=== PATIENT | male | born 1975 | race Caucasian/White ===

== ENCOUNTER 2024-07-07 16:36 | Emergency (ER) | payer BC, OTHER, SELFPAY ==
--- OUTSIDE RECORDS SUMMARY | 2024-07-07 16:39 | XMS REPORT | Continuity of Care Document ---
Author Name Unknown Address [address] [facility] [address] [place] [address] Organization [facility] [place] Address [address] [facility] [address] [place] [address] Care Team Providers Care Radiology Manager Name Role Phone PCP, PATIENT DOES NOT HAVE A Primary Care Physic cherie Unavailable Kailash Sal DO Attending Clinician KAILASH SAL Attending Clinician Unavailable KAILASH SAL Admitting Clinician Unavailable Payers Payer Name Policy Type Policy Number Effective Date Expirati on Date Source Allergies, Adverse Reactions, Alerts Allergy Name Allergy Type Status Severity Reaction(s) Onset Date Inactive Date Treating Clinician Comments Source Penicill in Propensi ty to adverse reaction s Active Anaphylaxis 05-09 00:00: 00 [facility] PENICILL IN DRUG INGREDI Active Anaphylaxis 05-09 00:00: 00 [facility] NO KNOWN ALLERGIE S Drug Class Active [facility] Social History Social Habit Start Date Stop Date Quantity Comments Source Sexual orientation U [facility] Sex Assigned At 1975 00:00:00 1975 00:00:00 [facility] Smoking Status Start Date Stop Date Source Tobacco smoking consumption unknown [facility] Medications Ordered Medication Name Filled Medication Name Start Date Stop Date Current Medication? Ordering Clinician Indication Dosage Frequency Signature (SIG) Comments Components Source methylpredn isolone sod succ (SOLU-MEDRO L) injection 125 mg 05-09 10:00: 00 Yes 125mg 125 mg, Intravenou s, Q6H ABX, First dose on Tue05/09/23 at 0400, Until Discontinu ed, Routine [facility] ipratropium -albuteroL (DUONEB) 0.5 mg-3 mg(2.5 mg base)/3 mL nebulizer solution 3 mL 05-09 10:00: 00 Yes 3mL 3 mL, Inhalation , QID, First dose on Tue05/09/23 at 0400, Until Discontinu ed, Routine [facility] Vital Signs Vital Name Observation Time Observation Value Comments S ource Systolic blood pressure 2023-05-09 11:00:00 113 mm[Hg] [facility] Diastolic blood pressure 2023-05-09 11:00:00 68 mm[Hg] [facility] Heart rate 2023-05-09 11:00:00 76 /min [facility] Respiratory rate 2023-05-09 11:00:00 24 /min [facility] Oxygen saturation in Arterial blood by Pulse oximetry 2023-05-09 11:00:00 95 /min [facility] Body temperature 2023-05-09 09:39:00 36.89 Daily [facility] Body height 2023-05-09 09:39:00 185.4 cm [facility] Body weight 2023-05-09 09:39:00 127.007 kg [facility] BMI 2023-05-09 09:39:00 36.94 kg/m2 [facility] Procedures Procedure Date / Time Performed Performing Clinicia n Source TROPONIN I 2023-05-09 09:50:00 Kailash Sal [facility] COMP. METABOLIC PANEL (87715) 2023-05-09 09:50:00 Singer Kailash [facility] CBC WITH DIFF 2023-05-09 09:50:00 Kailash Sal [facility] N-TERMINAL PRO-BNP 2023-05-09 09:50:00 Singer Kailash [facility] NOTICE OF PRIVACY PRACTICES 2023-05-09 09:33:05 Doctor Unassigned, [place] [facility] CONSENT/REFUSAL FOR DIAGNOSIS AND TREATMENT 2023-05-09 09:32:33 Doctor Unassigned, [place] [facility] Encounters Start Date/Time End Date/Time Encounter Type Admission Type Attending Clinicians Care Facility Care Department Encounter ID Source 2023-05-09 03:40:00 2023-05-09 05:35:00 Emergency Kailash Sal [facility] [id number] [facility] 2023-05-09 03:40:00 2023-05-09 05:35:00 Emergency X KAILASH SAL [facility] ERT [id number] [facility] Results Test Description Test Time Test Comments Results Result Co mments Source [id number] 10:44:39* Test Item Value Reference Range Interpretation Comme nts NT-proBNP (test code = 56216-8) 191 pg/mL <=125 LIZZ (test code = LIZZ) Result Indeterminate-Consid er causes of NT-proBNP elevation other than Heart failure such as acute coronary syndrome, pulmonary embolism, pulmonary hypertension, sepsis, stroke, and renal dysfunction. Lab Interpretation (test code = 94413-5) [facility] (58701)2023-05-09 10:35:20* Test Item Value Reference Range Interpretation Comme nts NA (test code = 3340504700) 139 mmol/L 135-145 K (test code = 7549983459) 3.8 mmol/L 3.5-5.0 CL (test code = 2626637986) 108 mmol/L 98-108 CO2 TOTAL (test code = 9013282103) 26 mmol/L 23-31 AGAP (test code = 8290060892) 5 2-16 BUN (test code = 6210191680) 13 mg/dL 7-23 GLUCOSE (test code = 6349578300) 106 mg/dL 70-110 CREATININE (test code = 2160-0) 0.95 mg/dL 0.60-1.25 TOTAL BILI (test code = 5336508904) 0.6 mg/dL 0.1-1.1 CALCIUM (test code = 4404858934) 9.0 mg/dL 8.6-10.6 T PROTEIN (test code = 0136317465) 7.7 g/dL 6.3-8.2 ALBUMIN (test code = 3916023327) 4.1 g/dL 3.5-5.0 ALK PHOS (test code = 3082810057) 133 U/L 34-122 H ALTv (test code = 1742-6) 23 U/L 5-50 AST(SGOT) (test code = 5105808783) 31 U/L 13-40 eGFR (test code = 64854-7) 100.0 mL/min/1.73m2 CKD-EPI eGFR (2020). Assuming creatinine has been stable day-to-day for at least three months, the eGFR indicates Category G1 (>= 90 mL/min/1.73 m2) Lab Interpretation (test code = 47644-6) Abnormal [facility] with [id number] 10:26:39* Test Item Value Reference Range Interpretation Comme nts WBC (test code = 6690-2) 10.42 4.20-10.70 RBC (test code = 789-8) 4.83 4.26-5.52 HGB (test code = 718-7) 14.2 g/dL 12.2-16.4 HCT (test code = 4544-3) 42.0 % 38.4-49.3 MCV (test code = 787-2) 87.0 fL 81.7-95.6 MCH (test code = 785-6) 29.4 pg 26.1-32.7 MCHC (test code = 786-4) 33.8 g/dL 31.2-35.0 RDW-SD (test code = 95179-1) 38.7 fL 38.5-51.6 RDW-CV (test code = 788-0) 12.3 % 12.1-15.4 PLT (test code = 777-3) 293 150-328 MPV (test code = 07420-3) 9.9 fL 9.8-13.0 NRBC/100 WBC (test code = 7861562890) 0.0 0.0-10.0 NRBC x10^3 (test code = 4811045751) See_Comment [Automated messa ge] The system which generated this result transmitted reference range: 10*3/?L. The reference range was not used to interpret this result as normal/abnormal. GRAN MAT (NEUT) % (test code = 770-8) 67.0 % IMM GRAN % (test code = 6527250039) 0.30 % LYMPH % (test code = 736-9) 15.7 % MONO % (test code = 5905-5) 5.7 % EOS % (test code = 713-8) 10.7 % BASO % (test code = 706-2) 0.6 % GRAN MAT x10^3(ANC) (test code = 1528192650) 6.98 10*3/uL 1.99-6.95 H IMM GRAN x10^3 (test code = 4719245401) 0.03 10*3/uL 0.00-0.06 LYMPH x10^3 (test code = 731-0) 1.64 10*3/uL 1.09-3.23 MONO x10^3 (test code = 742-7) 0.59 10*3/uL 0.36-1.02 EOS x10^3 (test code = 711-2) 1.12 10*3/uL 0.06-0.53 H BASO x10^3 (test code = 704-7) 0.06 10*3/uL 0.01-0.09 Lab Interpretation (test code = 39372-6) Abnormal [facility] Notes Date/Time Note Provider Source 2023-05-09 05:34:45 Pt given printed and verbal discharge instructions regarding uncertain cause chest pain, encouraged hydration. Pt verbalized understanding of instructions, pt awake alert oriented, resp reg unlabored, skin w/d, color appropriate for race, moves all ext well,pt encouraged to follow up with pcp & cardiology. Advised to seek medical attention for new/prolonged/worsening of symptoms. No adverse reaction to meds given in ER noted upon discharge. PIV d'cd, dressing to site, catheter in tact. Awake, alert oriented, resp reg unlabored, skin w/d, pt leaving amb with steady gait, in no apparent distress. [facility] 2023-05-09 03:35:45 Pt arrives ambulatory to ED reporting substernal chest pain, SOB, and dizziness x aprox 2 hrs. States he has not been sick recently but throat does hurt now after the SOB earlier. [facility] 2023-05-09 03:31:00 [facility] Emergency Department Note Patient Name: Therese Douglas Date of : 1975 48 year old male Treatment Room: MO5/MO5 Primary Care Physician: No primary care provider on file. Patient Escorted by: Family [5] Mode of Arrival: Personal means [1] EMS Treatment Prior to ED Arrival: Travel and Exposure Screening: Symptoms Does patient have any of these symptoms?: (not recorded) Exposure Screening Has patient had contact with someone with a communicable disease in the last month?: (not recorded) Diseases exposed to:: (not recorded) Is Patient ?: (not recorded) Exposure Date: (not recorded) Chief Complaint: Chief Complaint Patient presents with Chest Pain History of Present Illness: Patient 48-year-old male presenting for evaluation of chest pain and shortness of breath. Patient states that he was sleeping and was awakened with symptoms. He has no history of coronary artery disease. No known history of hypertension, hyperlipidemia, or diabetes. Pain is substernal nonradiating. He is a smoker and associated with wheezing. Past Medical History/Immunizations: No past medical history on file. Tetanus received in last 5 years: No Allergies: Allergies Allergen Reactions Penicillin Anaphylaxis Past Social History: Substance & Sexual Activity No substance use or sexual activity history on file. Past Surgical History: No past surgical history on file. Review of Systems: Review of Systems Constitutional: Negative for activity change, appetite change, chills, diaphoresis and fever. HENT: Negative for sore throat and voice change. Eyes: Negative for pain and visual disturbance. Respiratory: Positive for shortness of breath and wheezing. Negative for cough and chest tightness. Cardiovascular: Positive for chest pain. Negative for leg swelling. Gastrointestinal: Negative for abdominal pain, blood in stool, constipation and diarrhea. Genitourinary: Negative for dysuria, urgency and difficulty urinating. Musculoskeletal: Negative for back pain. Skin: Negative for color change, rash and wound. Neurological: Negative for dizziness and headaches. Psychiatric/Behavioral: The patient is nervous/anxious. Hematological: Does not bruise/bleed easily. Physical Exam: ED Triage Vitals [05/09/23 0339] Weight 127 kg (280 lb) Actual or estimated Estimated by patient/family report Height 1.854 m (6' 1") BP (!) 140/81 Pulse 84 Resp 20 Temp 36.9 ?C (98.4 ?F) Temp source Oral SpO2 97 % Measured on Room air Physical Exam Vitals and nursing note reviewed. Constitutional: Appearance: He is well-developed. HENT: Head: Normocephalic and atraumatic. Eyes: General: No scleral icterus. Conjunctiva/sclera: Conjunctivae normal. Pupils: Pupils are equal, round, and reactive to light. Neck: Vascular: No JVD. Cardiovascular: Rate and Rhythm: Normal rate and regular rhythm. Heart sounds: Normal heart sounds. Pulmonary: Effort: Pulmonary effort is normal. Breath sounds: Normal breath sounds. No stridor. Abdominal: General: Bowel sounds are normal. Palpations: Abdomen is soft. Musculoskeletal: General: Normal range of motion. Cervical back: Normal range of motion and neck supple. Skin: General: Skin is warm and dry. Neurological: Mental Status: He is alert and oriented to person, place, and time. Psychiatric: Behavior: Behavior normal. Thought Content: Thought content normal. Radiology: No orders to display Lab Results: Lab Results CBC WITH DIFF - Abnormal Result Value Ref Range WBC 10.42 4.20 - 10.70 10*3/?L RBC 4.83 4.26 - 5.52 10*6/?L HGB 14.2 12.2 - 16.4 g/dL HCT 42.0 38.4 - 49.3 % MCV 87.0 81.7 - 95.6 fL MCH 29.4 26.1 - 32.7 pg MCHC 33.8 31.2 - 35.0 g/dL RDW-SD 38.7 38.5 - 51.6 fL RDW-CV 12.3 12.1 - 15.4 % PLT 293 150 - 328 10*3/?L MPV 9.9 9.8 - 13.0 fL NRBC/100 WBC 0.0 0.0 - 10.0 /100 WBCs NRBC x10 3 <0.01 10*3/?L GRAN MAT (NEUT) % 67.0 % IMM GRAN % 0.30 % LYMPH % 15.7 % MONO % 5.7 % EOS % 10.7 % BASO % 0.6 % GRAN MAT x10 3 (ANC) 6.98 (*) 1.99 - 6.95 10*3/uL IMM GRAN x10 3 0.03 0.00 - 0.06 10*3/uL LYMPH x10 3 1.64 1.09 - 3.23 10*3/uL MONO x10 3 0.59 0.36 - 1.02 10*3/uL EOS x10 3 1.12 (*) 0.06 - 0.53 10*3/uL BASO x10 3 0.06 0.01 - 0.09 10*3/uL COMP. METABOLIC PANEL (71341) - Abnormal NA 139 135 - 145 mmol/L K 3.8 3.5 - 5.0 mmol/L CL 108 98 - 108 mmol/L CO2 TOTAL 26 23 - 31 mmol/L AGAP 5 2 - 16 BUN 13 7 - 23 mg/dL GLUCOSE 106 70 - 110 mg/dL CREATININE 0.95 0.60 - 1.25 mg/dL TOTAL BILI 0.6 0.1 - 1.1 mg/dL CALCIUM 9.0 8.6 - 10.6 mg/dL T PROTEIN 7.7 6.3 - 8.2 g/dL ALBUMIN 4.1 3.5 - 5.0 g/dL ALK PHOS 133 (*) 34 - 122 U/L ALTv 23 5 - 50 U/L AST(SGOT) 31 13 - 40 U/L eGFR 100.0 mL/min/1.73m2 N-TERMINAL PRO-BNP - Abnormal NT-proBNP 191 <=125 pg/mL TROPONIN I - Normal TROPONIN I 0.002 <=0.034 ng/mL EKG: If EKG completed, see Procedure Note. Orders and Treatments: Orders Placed This Encounter Procedures XR CHEST 1 VW Cbc with Diff Comp. Metabolic Panel (69544) N-Terminal Pro-Bnp Troponin I Orders Placed This Encounter Medications ipratropium-albuteroL (DUONEB) 0.5 mg-3 mg(2.5 mg base)/3 mL nebulizer solution 3 mL methylprednisolone sod succ (SOLU-MEDROL) injection 125 mg First Provider Eval: ED Events None ED COURSE Diagnosis/Impression as of 05/09/23 0455 Chest pain, unspecified type Shortness of breath Wheezing Procedures: Procedures MDM: Medical Decision Making Therese Douglas is a 48 year old male with low risk chest pain. HEART score 2. Stable for discharge with OP cardiology follow up. EKG normal. Trop normal. Wheezing improved after treatment. Problems Addressed: Chest pain, unspecified type: acute illness or injury Shortness of breath: acute illness or injury Wheezing: acute illness or injury Amount and/or Complexity of Data Reviewed Labs: ordered. Radiology: ordered. Risk Prescription drug management. Flowsheet Documentation: Scoring Tools: No data recorded Disposition/Condition: ED Disposition ED Disposition Disch - Home Condition Stable Comment -- Discharge Medications: Patient's Medications No medications on file Follow-up: Contact information for follow-up [facility] [address], [address] [facility] [address] Instructions: For follow up of the presenting symptoms. [facility]-Emergency Department Specialty: Emergency Medicine [address] [facility] [address] Instructions: If symptoms worsen as documented in the discharge Electronically signed by: Kailash Sal DO 05/09/235 [facility]
[2024-07-07] MEDS ORDERED: LIDOCAINE 1% 20 ML MDV ONE (17:31)
[2024-07-07] MEDS ORDERED: TDAP (DIPHTH,PERTUSS(ACELL),TET VAC) 0.5 ML VIAL IMVAC ONE (17:32)
--- NOTE | 2024-07-07 19:36 | RAD REPORT ---
EXAM: Hand Right 3 View HISTORY: Pain;Smash injury COMPARISON: None FINDINGS: Bones: No acute fracture identified. Alignment:No significant malalignment. Degenerative changes:None significant. Other: n/a IMPRESSION: No evidence of acute osseous abnormality involving the imaged hand.
--- NOTE | 2024-07-07 19:56 | EDPHYS ---
Physician Documentation [facility] Name: Jg Goldman Age: 49 yrs Sex: Male : 1975 Arrival Date: 07/07/2024 Time: 16:36 Bed 12 Private MD: ED Physician Erik Shetty HPI: 07/07 22:03 This 49 yrs old Male presents to ER via Ambulatory with complaints of Fall dr5 Injury, Facial Injury, Hand Injury. 22:03 Patient is a 49-year-old male with history of depression and anxiety coming in with a dr5 fall from 2 foot ladder without loss of consciousness. Patient reports he cut his right third digit as well as hit the right side of his face. Patient is on blood thinners and does not take medications daily.. Historical: - Allergies: 16:51 PENICILLINS; iw - PMHx: 16:51 Depressive disorder; Anxiety; iw - PSHx: 16:51 None; iw - Immunization history:: Last tetanus immunization: unknown. - Infectious Disease History:: Denies. - Social history:: Smoking status: Reported history of juuling and/or vaping. ROS: 22:03 Constitutional: as per hpi dr5 Exam: 22:03 Constitutional: This is a well developed, well nourished patient who is awake, alert, dr5 and in no acute distress. Head/Face: Normocephalic, atraumatic. Eyes: Pupils equal round and reactive to light, extra-ocular motions intact. Lids and lashes normal. Conjunctiva and sclera are non-icteric and not injected. Cornea within normal limits. Periorbital areas with no swelling, redness, or edema. Neck: Trachea midline, no thyromegaly or masses palpated, and no cervical lymphadenopathy. Supple, full range of motion without nuchal rigidity, or vertebral point tenderness. No Meningismus. Chest/axilla: Normal chest wall appearance and motion. Nontender with no deformity. No lesions are appreciated. Cardiovascular: Regular rate and rhythm with a normal S1 and S2. Normal PMI, no JVD. No pulse deficits. Respiratory: Lungs have equal breath sounds bilaterally, clear to auscultation. No rales, rhonchi or wheezes noted. No increased work of breathing, no retractions or nasal flaring. Back: No spinal tenderness. No costovertebral tenderness. Full range of motion. MS/ Extremity: Pulses equal, no cyanosis. Neurovascular intact. Full, normal range of motion. Neuro: Awake and alert, GCS 15, oriented to person, place, time, and situation. Cranial nerves II-XII grossly intact. Motor strength 5/5 in all extremities. Sensory grossly intact. Cerebellar exam normal. Normal gait. 22:03 Skin: injury, laceration(s), the wound is approximately .4 cm(s), with a depth of .2 cm(s), of the upper right corner of mouth lateral not involving lip, the second wound is approximately 4 cm(s), with a depth of 1.5 cm(s), of the palmar aspect of proximal phalanx of right middle finger, Vital Signs: 16:50 BP 136 / 68; Pulse 69; Resp 16; Temp 98.1; Pulse Ox 98% on R/A; Weight 106.59 kg; iw Height 6 ft. 1 in. ; Pain 9/10; 19:45 BP 124 / 69; Pulse 71; Resp 18; Pulse Ox 99% ; Pain 0/10; rg5 16:50 Body Mass Index 31.00 (106.59 kg, 185.42 cm) iw 16:50 Pain Scale: Adult iw 19:45 Pain Scale: Adult rg5 Laceration: 22:03 Wound Repair of 4cm ( 1.6in ) subcutaneous laceration to palmar aspect of proximal dr5 phalanx of right middle finger. Irregularly shaped.. Hemostasis noted.. Distal neuro/vascular/tendon intact. Anesthesia: Regional Block with 2 mls of 1% lidocaine. Wound prep: Moderate cleansing by me, Copious irrigation. Skin closed with 11 4-0 Prolene using simple sutures and sterile technique. Dressed with non-adherent dressing. Patient tolerated well. 22:03 Wound Repair of 1cm ( 0.4in ) subcutaneous laceration to upper right corner of mouth dr5 not involving lip. Irregularly shaped.. Hemostasis noted.. Distal neuro/vascular/tendon intact. Anesthesia: Local anesthetic administered with 0.5 mls of 1% lidocaine. Wound prep: Moderate cleansing by me. Skin closed with 3 6-0 Prolene using simple sutures and sterile technique. Dressed with non-adherent dressing. Patient tolerated well. MDM: 17:03 Medical Screening Exam initiated dr5 22:03 Differential diagnosis: abrasion, contusion, fracture, laceration. Data reviewed: vital dr5 signs, nurses notes, radiologic studies, plain films. I considered the following discharge prescriptions or medication management in the emergency department Medications were administered in the Emergency Department. See MAR. Historians other than the Patient: Spouse/Significant Other: and Mother. Care significantly affected by the following chronic conditions: Depression, Anxiety. Care significantly affected by the following Social Determinants of Health: Poor access to healthcare and/or lack of insurance, Poor access to transportation, Problems related to employment. Counseling: I had a detailed discussion with the patient and/or guardian regarding the historical points, exam findings, and any diagnostic results supporting the discharge/admit diagnosis, the presence of at least one elevated blood pressure reading (>120/80) during this emergency department visit, radiology results, the need for outpatient follow up, for definitive care, a family practitioner, to return to the emergency department if symptoms worsen or persist or if there are any questions or concerns that arise at home. ED course: Laceration was repaired with approximation. No fracture noted on x-ray. Recommended having facial laceration removed in 5 days and finger removed in 10-14. Recommended keeping wound clean and dry and wash with soap and water. All questions answered. Will have patient follow-up either here for removal of sutures or follow-up primary care doctor.. 07/07 18:29 Order name: Hand Right 3 View XRAY; Complete Time: 19:54 [facility] 07/07 17:25 Order name: Dressing - Wound; Complete Time: 20:08 [facility] 07/07 17:25 Order name: Prolene, Sutures; Complete Time: 17:59 [facility] 07/07 17:25 Order name: Setup Suture Tray; Complete Time: 17:59 dr5 Administered Medications: 17:35 Drug: Boostrix Tdap IM 0.5 ml IM once; as a single dose Route: IM; Site: right deltoid; aa5 19:52 Follow up: Response: No adverse reaction rg5 19:51 Drug: Lidocaine Infiltration (1 %) 20 ml 20 ml Infiltration once; to bedside {Note: rg5 given by provider.} Volume: 20 ml; Route: Infiltration; Disposition Summary: 07/07/24 19:55 Discharge Ordered Notes: Location: Home dr5 Condition: Stable dr5 Diagnosis - Laceration without foreign body of right middle finger without damage to nail dr5 Followup: dr5 - With: Emergency Department - When: As needed - Reason: Worsening of condition Followup: dr5 - With: Private Physician - When: 5 days for face and 10 days for finger fo suture removal - Reason: Staple/Suture removal Discharge Instructions: - Discharge Summary Sheet dr5 - Laceration Care, Adult dr5 - Facial Laceration dr5 Forms: - Work release form dr5 - Medication Reconciliation Form dr5 - Patient Portal Instructions dr5 - Leadership Thank You Letter dr5 Prescriptions: - Ibuprofen 800 mg Oral Tablet - take 1 tablet ORAL route every 12 hours As needed take with food; 20 tablet; dr5 Refills: 0, Product Selection Permitted Addendum: 07/09/2024 09:04 Co-signature as Attending Physician, Erik Shetty MD I reviewed the patient's care r n provided by the Advanced Practice Provider and agree with the diagnosis and treatment plan. Signatures: Dispatcher [employer] Misti James RN RN iw Nieto, Roman, MD MD rn Calderon, Audri, RN RN aa5 Mark Harris RN RN rg5 Sid Mahajan, [employer]-C [employer] SY[employer] STAMPER-Cdr5 Corrections: (The following items were deleted from the chart) 07/07 18:29 18:29 Hand Right 3 View+RAD.RAD.BRZ ordered. EDVT [place]
--- NOTE | 2024-07-07 19:56 | ER ---
Nurse's Notes [facility] Name: Jg Goldman Age: 49 yrs Sex: Male : 1975 Arrival Date: 07/07/2024 Time: 16:36 Bed 12 Private MD: Diagnosis: Laceration without foreign body of right middle finger without damage to nail Presentation: 07/07 16:49 Chief complaint: Patient states: was up 2 ft on a ladder, reached too far over and iw raked his right hand/middle finger over some metal and caught his right side of lip/face area on some metal in the trash , did not hit head, no LOC. 16:49 Acuity: EDVIN 4 iw 16:50 Method Of Arrival: Ambulatory iw 16:50 Coronavirus screen: At this time, the client does not indicate any symptoms associated iw with coronavirus-19. Ebola Screen: No symptoms or risks identified at this time. Initial Sepsis Screen: Does the patient meet any 2 criteria? No. Patient's initial sepsis screen is negative. Does the patient have a suspected source of infection? No. Patient's initial sepsis screen is negative. Risk Assessment: Do you want to hurt yourself or someone else? Patient reports no desire to harm self or others. Onset of symptoms was July 07, 2024. Historical: - Allergies: 16:51 PENICILLINS; iw - PMHx: 16:51 Depressive disorder; Anxiety; iw - PSHx: 16:51 None; iw - Immunization history:: Last tetanus immunization: unknown. - Infectious Disease History:: Denies. - Social history:: Smoking status: Reported history of juuling and/or vaping. Assessment: 16:54 General: Appears in no apparent distress. Behavior is calm, cooperative. Pain: iw Complains of pain in right hand. Neuro: Level of Consciousness is awake, alert, obeys commands, Oriented to person, place, time, situation. Injury Description: Laceration sustained to palmar aspect of middle phalanx of right middle finger is 0.5 to 2.5 cm long, was sustained 30-60 minutes ago. a small amount of bleeding noted at this time. Vital Signs: 16:50 BP 136 / 68; Pulse 69; Resp 16; Temp 98.1; Pulse Ox 98% on R/A; Weight 106.59 kg; iw Height 6 ft. 1 in. ; Pain 9/10; 19:45 BP 124 / 69; Pulse 71; Resp 18; Pulse Ox 99% ; Pain 0/10; rg5 16:50 Body Mass Index 31.00 (106.59 kg, 185.42 cm) iw 16:50 Pain Scale: Adult iw 19:45 Pain Scale: Adult rg5 ED Course: 16:40 Patient arrived in ED. cj3 16:50 Triage completed. iw 16:51 Arm band placed on. iw 16:54 Misti Fuentes, RN is Primary Nurse. iw 17:01 Sid Mahajan FNP-C is PHCP. dr5 17:01 Erik Shetty MD is Attending Physician. dr5 19:31 Hand Right 3 View XRAY In Process Unspecified. EDMS 19:52 Assist provider with laceration repair on palmar aspect of middle phalanx of right rg5 middle finger that was between 2.6 to 7.5 cm using sutures. Set up tray. Performed by Sid WAGONER Dressed with 4X4s, Neosporin, Patient tolerated. 20:09 Patient did not have IV access during this emergency room visit. rg5 20:10 Provided Education on: post er care done. rg5 Administered Medications: 17:35 Drug: Boostrix Tdap IM 0.5 ml IM once; as a single dose Route: IM; Site: right deltoid; aa5 19:52 Follow up: Response: No adverse reaction rg5 19:51 Drug: Lidocaine Infiltration (1 %) 20 ml 20 ml Infiltration once; to bedside {Note: rg5 given by provider.} Volume: 20 ml; Route: Infiltration; Outcome: 19:55 Discharge ordered by MD. dr5 20:10 Discharged to home ambulatory, rg5 20:10 Condition: stable 20:10 Discharge instructions given to patient, 20:10 Patient left the ED. rg5 Signatures: Dispatcher [employer] EDMS Misti Fuentes RN RN Skye Avila RN RN aa5 Gallardo, Rommel, RN RN Sid Benitez FNP-C FNP-Marcella Pate cj3 Corrections: (The following items were deleted from the chart) 16:50 16:49 Chief complaint: Patient states: was up 2 ft on a ladder, reached too far over iw and raked his right hand/middle finger over some metal and caught his right side of lip/face area on some metal in the trash iw 16:52 16:50 BP 136 / 68; Pulse 69bpm; Resp 16bpm; Pulse Ox 98% RA; Temp 98.1F; iw iw
[2024-07-09 21:45] VITALS: TEMP 98.1
[2024-07-09 21:47] VITALS: BP 124/69; O2SAT 99
== END 2024-07-07 20:10 | disposition home or self-care (01) ==
LOC: ER 16:36
DX: S61.212A Laceration without foreign body of right middle finger without damage to nail, initial encounter (principal); S01.512A Laceration without foreign body of oral cavity, initial encounter; W11.XXXA Fall on and from ladder, initial encounter; Z23 Encounter for immunization
CPT/HCPCS: 73130; 90715; 96372; 99284; 12002; 12011; J2003